=== PATIENT | female | born 1990 ===

== ENCOUNTER 2020-01-31 09:46 | Outpatient (CLI) | payer OTHER | END 2020-01-31 09:58 | disposition home or self-care (01) | LOC: RAD 09:46 | PROVIDERS: ATTEND Orthopaedic Surgery | DX: M25.571 Pain in right ankle and joints of right foot (principal); M25.572 Pain in left ankle and joints of left foot ==

== ENCOUNTER 2021-03-09 13:47 | Outpatient (CLI) | payer OTHER | END 2021-03-09 14:14 | disposition home or self-care (01) | LOC: SONOGRAMA 13:47 | PROVIDERS: ATTEND Specialist | DX: N92.1 Excessive and frequent menstruation with irregular cycle (principal); E04.8 Other specified nontoxic goiter ==

== ENCOUNTER 2021-04-09 08:50 | Outpatient (CLI) | payer OTHER | END 2021-04-09 09:52 | disposition home or self-care (01) | LOC: SONOGRAMA 08:50 | PROVIDERS: ATTEND Pathology Anatomic Pathology & Clinical Pathology | DX: E04.2 Nontoxic multinodular goiter (principal) ==

== ENCOUNTER 2021-08-01 07:28 | Day surgery (SDC) | payer OTHER ==
[2021-08-01] MEDS ORDERED: PERCOCET 5-3251 EACH PO (11:48)
== END 2021-08-01 14:55 | disposition home or self-care (01) ==
LOC: CIR.AMB 07:28
PROVIDERS: ATTEND Surgery
DX: C73 Malignant neoplasm of thyroid gland (principal)

== ENCOUNTER 2021-12-12 05:45 | Emergency (ER) | payer OTHER ==
[~2021-12-12] VITALS: Ht 165.1 cm; Wt 81.6 kg
[~2021-12-12 05:45] MED LIST: PERCOCET 5-3251 EACH PO
[2021-12-12] MEDS ORDERED: SYNTHROID (06:03)
== END 2021-12-12 13:48 | disposition home or self-care (01) ==
LOC: ER 05:45
DX: R10.13 Epigastric pain (principal); R11.10 Vomiting, unspecified